=== PATIENT | male | born 1985 | race Caucasian/White ===

== ENCOUNTER 2019-06-11 08:31 | Emergency (ER) | payer OTHER ==
[~2019-06-11] VITALS: Ht 165.1 cm; Wt 80.0 kg
[~2019-06-11 08:31] MED LIST: IBUP-1542 PO
[2019-06-11 08:45] VITALS: Ht 165.1 cm; Wt 80.0 kg
[2019-06-11] MEDS ORDERED: KETOROLAC 15 MG INJ IM STA (09:52)
[2019-06-11 10:30] VITALS: BP 147/89; PULSE 71; RESP 18
== END 2019-06-11 10:35 | disposition home or self-care (01) ==
LOC: E/R 08:31
DX: Z02.89 Encounter for other administrative examinations (principal); S62.336A Displaced fracture of neck of fifth metacarpal bone, right hand, initial encounter for closed fracture; X58.XXXA Exposure to other specified factors, initial encounter; Y92.89 Other specified places as the place of occurrence of the external cause